=== PATIENT | female | born 1975 | race Caucasian/White ===

== ENCOUNTER 2021-02-04 10:07 | Outpatient (RCR) | payer BC, SELFPAY ==
[2015-06-08 07:30] VITALS: BMI 35.7
== END 2021-02-04 23:59 ==
LOC: EMPH 10:07
PROVIDERS: PCP Internal Medicine; Visit Provider Family Medicine Geriatric Medicine
DX: Z03.818 Encounter for observation for suspected exposure to other biological agents ruled out (principal)
CPT/HCPCS: 87426

== ENCOUNTER → 2023-10-22 | Outpatient (CLI) | payer OTHER, SELFPAY ==
--- OUTSIDE RECORDS SUMMARY | 2023-10-22 16:45 | XMS RPT_ITS | CCD ---
Author Name Unknown Address [address] [place] [address] Organization [facility] Care Team Providers Care Health Promotion Specialist Name Role Phone Lana Davis Unavailable Giulia Michael Unavailable Unavailable PB Oneill Unavailable Unavailable Linnette Clifford Unavailable Unavailable Bindu Coleman Unavailable Unavailable Ticket Writer, System Unavailable Unavailable Unavailable Unavailable Mario Juan Unavailable Unavailable Lana Davis Unavailable Giulia Michael Unavailable Unavailable PB Oneill Unavailable Unavailable Linnette Clifford Unavailable Unavailable Bindu Coleman Unavailable Unavailable Ticket Writer, System Unavailable Unavailable Mario Juan Unavailable Unavailable Unavailable Unavailable Lana Davis Attending Unavailable Lana Davis Referring Unavailable Lana Davis Consulting Unavailable Gravius, Sindhu Unavailable Unavailable Fast, Delma A Unavailable Mario Juan Unavailable Unavailable Manchak Rowan Unavailable Unavailable PB Oneill Unavailable Unavailable Anika Ferrer Unavailable Bindu Coleman Unavailable Unavailable Giulia Michael Unavailable Unavailable Carissa DO Anika Unavailable Lana Davis MD Unavailable Gravius COMMUNITY REINVESTMENT ACT OFFICER, Sindhu Unavailable Unavailable Mario Blue LPN Unavailable Unavailable Manleik FLORES Rowan Unavailable Unavailable Bindu Coleman RN Unavailable Unavailable Giulia Michael RN Unavailable Unavailable Unavailable Unavailable Maria De Jesus Tenorio Unavailable Carissa , Anika Unavailable Lana Davis MD Unavailable [place] OB TECHJuan M Garcia Unavailable Unavailable [place] OB TECH, Cristiana Unavailable Unavailable Medications Completed/Discontinued Medications Medication Drug Class(es) Dates Sig (Normalized) Sig (Original) acyclovir 400 mg oral tablet (20 sources) Herpesvirus Nucleoside Analog DNA Polymerase Inhibitor, Herpes Simplex Virus Nucleoside Analog DNA Polymerase Inhibitor, Herpes Zoster Virus Nucleoside Analog DNA Polymerase Inhibitor Start: 09-06-2016 End: 06-03-2019 take 1 tablet by mouth three times daily Acyclovir 400 MG Oral Tablet 1 (one) Tablet three times daily for 10 days Quantity: 30 {Tablet} Refills: 1 Ordered: 03-Jun-2019 Bindu Coleman RN Start : 06-Sep-2016 End : 03-Jun-2019 Inactive Comments: can repeat if not healed in 10 days Problems Active Problems Problem Classification Problem Date Documented Da te Episodic/Chronic Acute bronchitis (20 sources) Acute bronchitis; Translations: [Bronchitis, acute] 02-14-2016 Episodic Administrative/social admission (20 sources) Patient encounter status; Translations: [Nutritional counseling] 06-17-2021 Episodic Disorders of lipid metabolism (10 sources) Hypercholesterolemi a; Translations: [Hypercholesteremia ] 07-17-2022 Chronic Fever of unknown origin (20 sources) Fever with chills; Translations: [Fever and chills] 11-03-2015 Episodic Genitourinary symptoms and ill-defined conditions (20 sources) Dysuria; Translations: [Dysuria] 04-26-2020 Episodic Immunizations and screening for infectious disease (20 sources) Need for prophylactic vaccination and inoculation against influenza; Translations: [Encounter for immunization] 10-14-2018 Episodic Malaise and fatigue (20 sources) Fatigue; Translations: [Fatigue] Resolved: 06-17-2021 06-07-2018 Episodic Menstrual disorders (20 sources) Irregular periods; Translations: [Irregular menses] 04-23-2019 Chronic Nonmalignant breast conditions (20 sources) Mastitis; Translations: [Mastitis] Resolved: 12-29-2019 11-01-2015 Episodic Nonspecific chest pain (20 sources) Chest pain; Translations: [Chest pain] Resolved: 12-29-2019 09-16-2015 Episodic Past or Other Problems Problem Classification Problem Date Documented Da te Episodic/Chronic Chronic obstructive pulmonary disease and bronchiectasis (15 sources) Chronic obstructive pulmonary disease and bronchiectasis Coronary atherosclerosis and other heart disease (20 sources) Coronary atherosclerosis and other heart disease Unclassified (20 sources) Unspecified Diagnosis 03-19-2013 Unclassified (20 sources) Unclassified (20 sources) OBESITY NOS (278.00) Unclassified (15 sources) SYMPTOM, PAIN, CHEST NOS (786.50) Unclassified (20 sources) CHILLS AND FEVER (780.6) Unclassified (15 sources) Pregnancies (); Translations: [Pregnancies ()] 03-19-2013 Results Test Name Value Interpretation Reference Range Facil ity Vital Signs Date Time Vital Sign Value Performing Clinician Facility 07-17-2022 11:59-0400 Body height 167.64 cm Sindhu Jones [facility]; [facility] Work Phone: 07-17-2022 11:59-0400 Body mass index (BMI) [Ratio] 30.34 kg/m2 Sindhu Jones [facility]; [facility] Work Phone: 07-17-2022 11:59-0400 Body surface area Derived from formula 1.95 m2 Sindhu Jones [facility]; [facility] Work Phone: 07-17-2022 11:59-0400 Body temperature 97.3 [degF] Sindhu Jones [facility]; [facility] Work Phone: Encounters Encounter Date Encounter Type Care Provider Facility Start: 07-03-2023 End: 07-03-2023 Annotation/Addendum Anika Fererr DO Work Phone: [facility] Start: 04-09-2023 End: 04-09-2023 Nursing evaluation of patient and report Anika Ferrer DO Work Phone: [facility] Start: 07-17-2022 End: 07-17-2022 Patient encounter status Anika Ferrer DO Work Phone: [facility]; [facility] Work Phone: Start: 07-17-2022 End: 07-17-2022 Periodic preventive med est patient 40-64yrs Anika Ferrer DO Work Phone: [facility] Start: 06-17-2021 End: 06-17-2021 Patient encounter status Anika Ferrer DO Work Phone: [facility]; [facility] Work Phone: Start: 06-17-2021 End: 06-17-2021 Periodic preventive med est patient 18-39 yrs Anika Ferrer DO Work Phone: [facility] Start: 04-26-2020 End: 04-26-2020 Lab Order Lana Bonericcoi [facility] Start: 03-29-2020 End: 03-29-2020 Annotation/Addendum Lana Bonericcoi [facility] Start: 12-29-2019 End: 12-29-2019 Office outpatient visit 10 minutes Lana Davis [facility] Start: 12-01-2019 End: 12-01-2019 Office outpatient visit 5 minutes Lana Davis [facility] Start: 11-03-2019 End: 11-03-2019 Office outpatient visit 10 minutes Lana Davis [facility] Start: 09-25-2019 End: 09-25-2019 Prescription Refill Lana Davis [facility] Start: 07-11-2019 End: 07-11-2019 Nursing evaluation of patient and report Lana Davis [facility] Start: 06-16-2019 Review Lana aguilar [facility] Start: 06-16-2019 End: 06-16-2019 Office outpatient visit 5 minutes Lana Pozoi [facility] Start: 06-03-2019 End: 06-03-2019 Phone Encounter Lana Bonericcoi [facility] Start: 05-26-2019 End: 05-26-2019 Phone Encounter Lana Bonezzi [facility] Start: 05-07-2019 End: 05-07-2019 Phone Encounter Lana Bonezzi [facility] Start: 04-23-2019 End: 04-23-2019 Lab Order Lana Bonezzi [facility] Start: 12-23-2018 End: 12-23-2018 Phone Encounter Lana Bonezzi [facility] Start: 10-28-2018 Patient encounter procedure Lana Davis [facility] Start: 10-14-2018 End: 10-14-2018 Office outpatient visit 5 minutes Lana Davis [facility] Start: 08-28-2018 End: 08-28-2018 Phone Encounter Lana Bonericcoi [facility] Start: 08-23-2018 End: 08-23-2018 Lab Order Lana Bonericcoi [facility] Start: 06-07-2018 End: 06-07-2018 Lab Order Lana Bonericcoi [facility] Start: 05-28-2018 End: 05-28-2018 Phone Encounter Lana [facility]ericcoi [facility] Start: 10-05-2017 End: 10-05-2017 Phone Encounter Lana Bonericcoi [facility] Start: 02-22-2017 End: 02-22-2017 Phone Encounter Lana Bonericcoi [facility] Start: 09-06-2016 End: 09-06-2016 Patient encounter Lana Bonericcoi [facility] Start: 02-14-2016 End: 02-14-2016 Refill Request Lana Bonezzi [facility] Start: 11-01-2015 End: 11-01-2015 Refill Request Lana Bonericcoi [facility] Start: 03-10-2015 End: 03-10-2015 Phone Encounter Lana Bonezzi [facility] Start: 12-30-2014 End: 12-30-2014 Annotation/Addendum Lana Bonezzi [facility] Start: 11-27-2013 End: 11-27-2013 Phone Encounter Lana Bonericcoi [facility] Start: 04-18-2013 End: 04-18-2013 Phone Encounter Lana Bonericcoi [facility] Start: 03-19-2013 End: 03-19-2013 Patient encounter Lana Bonezzi [facility] Start: 03-05-2013 End: 03-09-2013 Patient encounter Lana Bonezzi [facility] Start: 02-18-2013 End: 02-18-2013 Patient encounter Lana Bonezzi [facility] Start: 02-12-2013 End: 02-12-2013 Phone Encounter Lana Bonezzi [facility] Start: 02-04-2013 End: 02-04-2013 Patient encounter Lana Bonezzi [facility] Start: 01-20-2013 End: 01-22-2013 Patient encounter Lana Bonezzi [facility] Start: 07-26-2012 End: 07-26-2012 Annotation/Addendum Lana Bonezzi [facility] Start: 07-19-2012 End: 07-22-2012 Patient encounter Lana Bonefarzaneh [facility] Start: 04-12-2012 End: 04-12-2012 Patient encounter Lana Bonefarzaneh [facility] Start: 03-29-2012 End: 03-29-2012 Patient encounter Lana Bonefarzaneh [facility] Start: 03-18-2012 End: 03-18-2012 Patient encounter Lana Bonericcoi [facility] Start: 03-01-2012 End: 03-04-2012 Patient encounter Lana Bonericcoi [facility] Start: 02-16-2012 End: 02-16-2012 Patient encounter Lana Bonericcoines [facility] Start: 11-10-2011 End: 11-10-2011 Phone Encounter Lana Bonericcoines [facility] Start: 10-16-2011 End: 10-16-2011 Annotation/Addendum Lana Bonefarzaneh [facility] Start: 10-16-2011 End: 10-16-2011 Patient encounter Lana Bonefarzaneh [facility] Start: 09-11-2011 End: 09-11-2011 Phone Encounter Lana Bonefarzaneh [facility] Start: 09-08-2011 End: 09-08-2011 Annotation/Addendum Lana Bonefarzaneh [facility] Start: 07-17-2011 End: 07-17-2011 Patient encounter Lana Bonericcoi [facility] Start: 05-15-2011 End: 05-15-2011 Patient encounter Lana Bonericcoi [facility] Start: 04-21-2011 End: 04-21-2011 Patient encounter Lana Bonericcoi [facility] Start: 04-06-2011 End: 04-07-2011 Patient encounter Lana Bonericcoi [facility] Start: 03-23-2011 End: 03-27-2011 Patient encounter Lana Bonericcoi [facility] Start: 03-09-2011 End: 03-09-2011 Patient encounter Lana Bonericcoi [facility] Start: 02-22-2011 End: 02-22-2011 Patient encounter Lana Bonericcoi [facility] Start: 10-26-2010 End: 10-26-2010 Patient encounter Lana Bonericcoi [facility] Start: 08-13-2010 End: 08-13-2010 Phone Encounter Lana Bonezzi [facility] Start: 10-09-2008 End: 10-09-2008 Patient encounter Lana Ryan [facility] Start: 05-28-2008 End: 05-28-2008 Phone Encounter Lana Ryan [facility] Start: 09-18-2007 End: 09-18-2007 Office outpatient visit 15 minutes Lana Aguila [facility] Start: 07-12-2007 End: 07-12-2007 Phone Encounter Lana Aguila [facility] Procedures Date Procedure Procedure Detail Performing Clinician Start: 07-01-2023 End: 07-01-2023 Urgent Care Visit Report Procedure Note: See Note; NOTES: [facility] [address], [address] [place] [id number] OFFICE VISIT Date of Service: 07/01/23 MR#: [id number] Acct: [id number] Name: BINDU COLEMAN Rep #: [id number] : 1975 Provider: LUCERO brewster Age/Sex: 48/F Location: [facility] Status: Signed Intake Vital Signs 06/03/22 09:50 07/01/23 11:00 Height 5 ft 6 in 5 ft 6 in Weight: 210 lb BMI 33.9 BP 120/78 Blood Pressure Location Lt brachial Position Sitting Respiration 14 Pulse 97 Pulse Source Monitor Temp 100.4 F H Temp Source Temporal Pulse Oximetry (%) 95 Oxygen Delivery Method room air Intake Visit Reasons: SORE THROAT, FEVER Allergies No Known Allergies Allergy (Verified 06/03/22 09:17) [facility] Medical History (Updated 07/01/23 @ 12:35 by Boris Castillo NP, COMPRESS TRUCKERKunalC) Contact with and (suspected) exposure to other viral communicable diseases Social History Smoking Status: Never smoker HPI HPI Details: BINDU COLEMAN, is a 48 F who presents to the office today for sore throat and fever. 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 This has been ongoing for two days. She first noted fever and chills. She then notes sore throat. She started Augmentin for three pills. She has taken Motrin and Tylenol. She states her sore throat feels like swallowing razor blades . She states strep infection with coworkers. She is tends to receive flu vaccination, but no COVID-19 vaccination. She states three episodes of vomiting with stomach acid . She states reduce fluid intake. ROS Const Constitutional: Positive for body ache, chills, fatigue, fever(s), decreased energy, snoring (chronic), weakness, sleep problems (sleeping more) and change in appetite (less ); No headache(s) Eyes Eyes: No blurry vision, change in vision, double vision, irritation, discharge or vision loss ENT ENT: Positive for ear or mastoid pain, ear discharge, dizziness/vertigo, post nasal drip, facial pain (cheeks, forehead), dental pain, difficulty swallowing and sore throat; No ear pressure, hearing loss, tinnitus, balance problems, nosebleed/epistaxis, nasal congestion, sinus pressure, sinus pain, nasal discharge, headache(s), bad breath, hoarseness, lip swelling, mouth lesions, mouth pain, neck pain, tongue swelling or throat swelling Resp Respiratory: Positive for chest congestion and snoring (chronic); No cough, change in phlegm color, hemoptysis, pain on inspiration, shortness of breath, pain with cough, stridor or wheezing Cardio Cardiology: No chest pain at rest, chest pain with exertion, shortness of breath, dyspnea on exertion or lightheadedness Gastro GI: Positive for abdominal pain, difficulty swallowing, nausea/dyspepsia and vomiting; No change in bowel habits Genitourinary-Female: No difficulty urinating, burning urination, painful urination, urinary incontinence, urinary frequency or urinary urgency Musc Musculoskeletal: No neck pain Neuro Neurology: Positive for weakness; No headache(s) Psych Psychiatric: Positive for change in appetite (less ) Endo Endocrine: Positive for fatigue Aller/Imm Allergy/Immunologic: No lip swelling, throat swelling, tongue swelling or wheezing Exam Const General: cooperative, healthy appearing, comfortable and no acute distress Orientation: alert, awake and oriented x3 HENMT Head: normal to inspection and normocephalic Ears: hearing grossly normal bilaterally, external ears normal and TM's normal bilaterally Nose: external nose normal, nares normal and no nasal discharge Face and sinus: normal facial exam and sinus tenderness ethmoid and maxillary Mouth: oral mucosae normal, lip normal, tongue normal, oropharynx normal and moist mucous membranes Throat: posterior oropharynx normal, uvula midline, abnormal tonsil bilaterally erythema and exudates, posterior oropharynx abnormal cobblestoning and erythema and postnasal drainage Eyes General: appearance normal, both eyes and all related structures Neck Neck: normal visual inspection and no lymphadenopathy Carotids: normal carotid upstroke Lymphatic: lymphadenopathy right anterior cervical Chest Chest palpation inspection: normal inspection of the chest Resp Effort Inspection: normal respiratory effort, able to speak in complete sentences, symmetric chest movement, no cough and no stridor Auscultation: Bilateral: Clear to Auscultation Cardio Rate: regular rate Rhythm: regular rhythm Heart Sounds: S1 normal, S2 normal and no murmurs GI Inspection: normal to inspection Auscultation: normal bowel sounds Palpation: soft Skin General: no rashes or lesions noted Neuro Speech: speech normal Extrem General: normal to inspection and capillary refill normal Results POC Rapid Strep A Office Rapid Strep A Negative Last Edit by Kary Medellin on 07/01/23 11:22 Coding Level of Care Code Off vis,est,level 3 Diagnoses Pharyngitis, unspecified etiology J02.9 Pharyngitis/tonsillitis etiology: unspecified etiology Assessment and Plan Assessment and Plan (1) Pharyngitis: Status: Acute Qualifiers: Pharyngitis/tonsillitis etiology: unspecified etiology Qualified Code(s): J02.9 - Acute pharyngitis, unspecified Plan: Though rapid test is negative. Will treat based on exam. We discussed COVID-19 and Flu testing, but given exam it is felt that throat or sinus etiology is her source of infection, but will consider depending on response. She became dizzy at the end of office visit. We laid her down flat and gave a cold paper towel. Blood pressure, 111/74, and heart rate, 81 bpm, were stable. She improved. She was encouraged in to improve oral hydration. She is not on diuretic therapy. IV fluid was reviewed with her if oral intake continues to be low. Yeast infection given due to history with previous antibiotic usage. Orders: Orders POC Rapid Strep A Today J02.9 - Acute pharyngitis, unspecified, Z20.818 - Contact with and (suspected) exposure to other bacterial communicable diseases Medications: New amoxicillin-pot clavulanate 875-125 mg 1 TAB PO BID 7 days 14 tabs 0RF fluconazole may repeat second dose 72 hrs after first dose if symptoms persist 150 mg PO Q3D 2 tabs 0RF 07/01/23 1236 <Electronically signed by Boris Castillo COMPRESS TRUCKER COMPRESS TRUCKER-C> Date Boris Castillo COMPRESS TRUCKER COMPRESS TRUCKER-C Cosigner Signature: Date (if applicable) CC: DO Anika Guadalupe DO Work Phone: Start: 06-03-2022 End: 06-03-2022 Office Visit Report Procedure Note: See Note; NOTES: [address] [place] [address] OFFICE VISIT Date of Service: 06/03/22 MR#: [id number] Acct: [id number] Patient: BINDU COLEMAN Rep #: [id number] : 1975 Provider: WILDER fall Age/Sex: 47/F Location: [facility] Status: Signed Employer Purchased Covid Test Note: Patient here today for Covid Testing, requested by their Employer. Assessment and Plan Assessment and Plan Orders: Orders POC Cepheid SYLVIA Cov-2 PCR EMP Today Z11.52 - Encounter for screening for COVID-19 06/03/22 1028 <Electronically signed by Andrew HDZ> Date Andrew HDZ Cosignjustice Signature: Date (if applicable) CC: Anika Ferrer DO Work Phone: Start: 06-03-2022 End: 06-03-2022 Urgent Care Visit Report Procedure Note: See Note; NOTES: [facility] [place] [address] OFFICE VISIT Date of Service: 06/03/22 MR#: [id number] Acct: [id number] Name: BINDU COLEMAN Rep #: [id number] : 1975 Provider: WILDER fall Age/Sex: 47/F Location: [facility] Status: Signed with Addenda ADDENDUM by WILDER Moody on 06/03/22 at 1256 HPI Details: add'l dx: COVID-19 Assessment and Plan Assessment and Plan (1) Contact with and (suspected) exposure to other viral communicable diseases: Status: Acute Medications: New dexamethasone (Decadron) 6 mg PO DAILY 5 tabs 0RF 06/03/22 1256 <Electronically signed by Andrew DHZ> Date Andrew Moody cc: * Signed Intake Vital Signs 06/03/22 09:50 Height 5 ft 6 in Weight: 206 lb BMI 33.2 BP 138/82 H Blood Pressure Location Lt brachial Position Sitting Respiration 16 Pulse 102 H Pulse Source Monitor Temp 98.3 F Temp Source Temporal Pulse Oximetry (%) 97 Oxygen Delivery Method room air Intake Visit Reasons: VOMITING, FEVER, BODY ACHES Allergies No Known Allergies Allergy (Verified 06/03/22 09:17) Medications Ranitidine [Zantac] 150 mg PO PRN PRN Heartburn 06/08/15 [History Confirmed 06/03/22] ferrous sulfate 325 mg (65 mg iron) tablet (Iron (ferrous sulfate)) 325 mg PO DAILY 06/08/15 [History Confirmed 06/03/22] vits,calcium no.78-iron fumarate-folic acid 29 mg-1 mg tablet (Prenatabs FA) 1 tab PO DAILY 06/08/15 [History Confirmed 06/03/22] dexamethasone 6 mg tablet (Decadron) 6 mg PO DAILY #5 tabs 06/03/22 [Rx Confirmed 06/03/22] [facility] Medical History (Updated 06/03/22 @ 09:51 by Andrew HDZ, PA) Contact with and (suspected) exposure to other viral communicable diseases Social History Smoking Status: Never smoker HPI HPI Details: BINDU COLEMAN, is a 47 F who presents to the office today for initial evaluation approximately 72- hour history of fever (T-max 102.0 Fahrenheit approximately 48 hours ago), chills, cough, headache, myalgias, fatigue, sore throat, congestion/runny nose. Patient also appreciates trace erythema at right thumb radial IPJ without swelling though tender to palpation unknown ideology. 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 [id number] ibuprofen taken to assist noting she has now been afebrile for the last 48 hours. Non-smoker. No other associated symptoms and no other alleviating/aggravating factors. ROS Const Constitutional: No other (As above) Exam Const General: cooperative, healthy appearing and no acute distress Orientation: alert, awake and oriented x3 HENMT Head: normal to inspection Ears: hearing grossly normal bilaterally, external ears normal, TM's normal bilaterally and EAC's normal Nose: external nose normal, nares normal, septum normal and no nasal discharge Face and sinus: normal facial exam, sinuses nontender and face symmetric Mouth: oral mucosae normal, lip normal, tongue normal and oropharynx normal Throat: posterior oropharynx normal, tonsils normal, uvula midline and postnasal drainage Eyes General: appearance normal, both eyes and all related structures Neck Neck: normal visual inspection, full ROM, no lymphadenopathy, no meningeal signs and supple Neck mass: No Thyroid: thyroid normal Lymphatic: no lymphadenopathy noted Chest Chest palpation inspection: normal inspection of the chest Resp Effort Inspection: normal respiratory effort, able to speak in complete sentences and cough Quality of cough: dry Auscultation: Bilateral: Clear to Auscultation Cardio Palpation: normal PMI Rate: tachycardic Rhythm: regular rhythm Heart Sounds: S1 normal, S2 normal, no gallops, no murmurs and no rubs Pulses: radial pulses present GI Inspection: normal to inspection Palpation: soft and no hepatosplenomegaly Skin General: no rashes or lesions noted Neuro General: patient alert, patient awake, patient oriented x3 and gait normal Cognition: normal cognition Speech: speech normal Gait: normal gait Motor: muscle tone normal throughout Sensory Exam: no sensory deficits noted Psych Appearance: grossly normal Mental Status: mental status grossly normal Mood: congruent mood Affect: normal affect Speech and Movement: speech and movement normal Attitude: cooperative Thought Process: normal Thought Content: normal Judgment: judgment good Results POC Cepheid SYLVIA Cov-2 PCR EMP POC Cepheid SYLVIA Cov-2 PCR EMP Detected Last Edit by Muriel Goldman RN on 06/03/22 10:14 Negative for Influenza A, B, and RSV Coding Level of Care Code Off vis,new,level 3 Diagnoses Contact with and (suspected) exposure to other viral communicable diseases Z20.828 Assessment and Plan Assessment and Plan (1) Contact with and (suspected) exposure to other viral communicable diseases: Status: Acute Plan: - fever/chills, cough, headache, myalgias, fatigue, sore throat, congestion/runny nose POC Cepheid COVID-19 positive, influenza A/B both negative, RSV negative. Copy of lab results offered. Paxlovid declined by patient upon offering. Accepted Decadron prescription upon offering. Patient aware of isolation recommendations and [facility] department notification. Follow-up with PCP in 5 to 7 days should symptoms not improve, ED sooner should symptoms worsen or any other concerns develop. Patient states acknowledging understanding all the above. This note was generated with [employer] dictation software. It may contain incorrect words, spelling, and punctuation that were not noted in checking the note before signing. Medications: New dexamethasone (Decadron) 6 mg PO DAILY 5 tabs 0RF 06/03/22 1028 <Electronically signed by Andrew HDZ> Date Andrew HDZ Cosigner Signature: Date (if applicable) CC: Anika Ferrer DO Work Phone: Start: 02-28-2015 End: 02-28-2015 Chest PA and Lateral Comments: See Note; NOTES: [facility] Imaging Services [address] [place] [address] Radiology Report MR#: [id number] Acct: [id number] Name: BINDU COLEMAN Rep #: [id number] : 1975 F 39 From: Austin Gore MD PCP: Status: REG CLI Study: Chest PA and Lateral Date of Exam: 02/28/15 Exam# [id number] Ordering Dr: Anika Ferrer DO STUDY: X-RAY CHEST REASON FOR EXAM: Female, 39 years old. Shortness of breath, cough. 25 weeks . TECHNIQUE: PA and lateral views at 9:52 AM. COMPARISON: None. FINDINGS: The lungs are well expanded but not hyperinflated. No pneumothorax. There is apparent minimal airspace density/atelectasis in the left midlung. No pleural effusions. Normal size heart. Normal mediastinum and dave. Normal visualized pulmonary arteries. Normal visualized aortic arch and descending thoracic aorta. Normal visualized thoracic spine. Normal visualized ribs, clavicles, and shoulders. There is no demonstrated abnormality of the visualized soft tissue structures of the upper abdomen. IMPRESSION: Minimal pneumonia on the left. N.B. : The above information has been verbally conveyed by Austin Gore MD to Dr. Ferrer, Referring Physician, on 02/28/2015 11:59:37 (ET). Electronically Signed: Austin Gore MD at 10:16 EDT Tel , Service support [phone], N.B. : The above information has been verbally conveyed by Austin Gore MD to Dr. Ferrer, Referring Physician, on 02/28/2015 11:59:37 (ET). RAD/Chest PA and Lateral IMPRESSION: Minimal pneumonia on the left. N.B. : The above information has been verbally conveyed by Austin Gore MD to Dr. Ferrer, Referring Physician, on 02/28/2015 11:59:37 (ET). Electronically Signed: Austin Gore MD at 10:16 EDT Tel , Service support [phone], N.B. : The above information has been verbally conveyed by Austin Gore MD to Dr. Ferrer, Referring Physician, on 02/28/2015 11:59:37 (ET). CC: Anika Ferrer DO Slide Machine Tender: Signed Anika Ferrer Work Phone: Plan of Treatment Date Care Activity Detail Author Start: 07-17-2022 Procedure Education Eprescribed prescriptions (G8553) [facility] Work Phone: Start: 07-17-2022 Provider Instructions for Treatment Reviewed Lab [facility] Work Phone: Start: 06-17-2021 Procedure Education Eprescribed prescriptions (G8553) [facility] Work Phone: Start: 12-29-2019 Procedure Education Eprescribed prescriptions (G8553) [facility] Work Phone: Start: 12-29-2019 Provider Instructions for Treatment Follow up in 2 weeks [facility] Work Phone: Start: 11-03-2019 Provider Instructions for Treatment Follow up in 2 weeks [facility] Work Phone: Start: 05-26-2019 Gonadotropin follicle stimulating hormone FSH AND LH (86924) [facility] Work Phone: Start: 04-23-2019 Gonadotropin chorionic qualitative HCG Qualitative, Serum (96445) [facility] Work Phone: Start: 04-23-2019 TSH Qn TSH (44193) [facility] Work Phone: Start: 08-23-2018 Antibody rubella RUBELLA IgG (84031) [facility] Work Phone: Start: 08-23-2018 Antibody rubeola RUBEOLA IgG (43037) [facility] Work Phone: Start: 08-23-2018 Antibody mumps MUMPS IgG (76944) [facility] Work Phone: Start: 08-23-2018 Antibody varicella-zoster V-ZOSTER IgG (IMMUNITY) 85840 (09263) [facility] Work Phone: Start: 08-23-2018 Hepatitis b surf antibody hbsab HEPATITIS B SURFACE ANTIBODY (76901) [facility] Work Phone: Start: 03-09-2013 Provider Instructions for Treatment Continue Current Prescription(s) [facility] Work Phone: Start: 07-19-2012 Creatine kinase mb fraction only CPK MB FRACTION (11880) [facility] Work Phone: Start: 07-19-2012 Assay of troponin quantitative ASSAY, TROPONIN, QUANTITATIVE (aka Troponin I) (40296) [facility]; [facility] Work Phone: Start: 07-19-2012 Troponin I.cardiac mass conc ASSAY, TROPONIN, QUANTITATIVE (aka Troponin I) (00097) [facility] Work Phone: Start: 07-19-2012 Amylase enzyme act/vol AMYLASE (37490) [facility] Work Phone: Start: 07-19-2012 Assay of amylase AMYLASE (37308) [facility] Work Phone: Start: 07-19-2012 Blood count complete automated CBC (Auto) (45680) [facility] Work Phone: Start: 07-19-2012 Comprehensive metabolic panel Metabolic Panel, Comprehensive (19302) [facility] Work Phone: Start: 07-19-2012 Assay of lipase LIPASE (83563) [facility] Work Phone: Start: 07-19-2012 Fibrin dgradj products d-dimer quantitative D-Dimer (80802) [facility] Work Phone: Start: 03-29-2012 Provider Instructions for Treatment [facility] Work Phone: Start: 03-18-2012 Provider Instructions for Treatment Follow up in 2 weeks [facility] Work Phone: Start: 03-04-2012 Provider Instructions for Treatment [facility] Work Phone: Start: 04-21-2011 Provider Instructions for Treatment [facility] Work Phone: Start: 04-07-2011 Provider Instructions for Treatment Continue Current Prescription(s) [facility] Work Phone: Start: 03-09-2011 Provider Instructions for Treatment [facility] Work Phone: Start: 02-22-2011 Provider Instructions for Treatment FOLLOW UP IN 2 WEEKS [facility] Work Phone: Start: 09-18-2007 Cul bact xcpt urine blood/stool aerobic isol BORA CULTURE-OTHER (33504) [facility] Work Phone: Start: 09-18-2007 Patient Education Sore throat: diagnosis and treatment [facility] Work Phone: [facility] Work Phone: [facility] Work Phone: [facility] Work Phone: [facility] Work Phone: [facility] Work Phone: [facility] Work Phone: [facility] Work Phone: Pharyngitis, acu te : Sore throat: diagnosis and treatment [facility] Work Phone: [facility] Work Phone: [facility] Work Phone: [facility] Work Phone: [facility] Work Phone: Immunizations Immunization Date Immunization Notes Care Provider Dick kuhn 07-08-2022 influenza, seasonal, injectable Anika Ferrer DO Work Phone: [facility]; [facility] Work Phone: 12-19-2018 measles, mumps and rubella virus vaccine Lana Pozoi [facility] Work Phone: Payers Date Payer Category Payer Unknown [id number] 1975 Unknown [id number] [facility] Unknown [id number] Social History Date Type Detail Facility Alcohol Use: Never smoker [facility] Work Phone: Caffeine Use [facility] Work Phone: Instructions Note Date & Type Note Facility [facility] Work Phone: Instructions Note Date & Type Note Facility [facility] Work Phone: Instructions Note Date & Type Note Facility [facility]; [facility] Work Phone: Instructions Note Date & Type Note Facility [facility]; [facility] Work Phone: Family History Unknown Family Member Name Dates Details Diabetes Mellitus Comments:Maternal Uncle. Mat ernal Grandfather. Status:Active Heart Disease Comments:Maternal Uncle. Pat ernal Grandfather. Maternal Grandfather. Status:Active Hypercholesterolemia Comments:Mother. Brother. Ma ternal Grandmother. Status:Active Hypertension Comments:Mother. Father. Bro ther. Maternal Grandmother. Maternal Grandfather. Status:Active Prostate Cancer Comments:Father. Status:Active Unknown Family Member Name Dates Details Diabetes Mellitus Comments:Maternal Uncle. Mat ernal Grandfather. Status:Active Heart Disease Comments:Maternal Uncle. Pat ernal Grandfather. Maternal Grandfather. Status:Active Hypercholesterolemia Comments:Mother. Brother. Ma ternal Grandmother. Status:Active Hypertension Comments:Mother. Father. Bro ther. Maternal Grandmother. Maternal Grandfather. Status:Active Prostate Cancer Comments:Father. Status:Active Unknown Family Member Name Dates Details Diabetes Mellitus Comments:Maternal Uncle. Mat ernal Grandfather. Status:Active Heart Disease Comments:Maternal Uncle. Pat ernal Grandfather. Maternal Grandfather. Status:Active Hypercholesterolemia Comments:Mother. Brother. Ma ternal Grandmother. Status:Active Hypertension Comments:Mother. Father. Bro ther. Maternal Grandmother. Maternal Grandfather. Status:Active Prostate Cancer Comments:Father. Status:Active Unknown Family Member Name Dates Details Diabetes Mellitus Comments:Maternal Uncle. Mat ernal Grandfather. Status:Active Heart Disease Comments:Maternal Uncle. Pat ernal Grandfather. Maternal Grandfather. Status:Active Hypercholesterolemia Comments:Mother. Brother. Ma ternal Grandmother. Status:Active Hypertension Comments:Mother. Father. Bro ther. Maternal Grandmother. Maternal Grandfather. Status:Active Prostate Cancer Comments:Father. Status:Active Unknown Family Member Name Dates Details Diabetes Mellitus Comments:Maternal Uncle. Mat ernal Grandfather. Status:Active Heart Disease Comments:Maternal Uncle. Pat ernal Grandfather. Maternal Grandfather. Status:Active Hypercholesterolemia Comments:Mother. Brother. Ma ternal Grandmother. Status:Active Hypertension Comments:Mother. Father. Bro ther. Maternal Grandmother. Maternal Grandfather. Status:Active Prostate Cancer Comments:Father. Status:Active Unknown Family Member Name Dates Details Diabetes Mellitus Comments:Maternal Uncle. Mat ernal Grandfather. Status:Active Heart Disease Comments:Maternal Uncle. Pat ernal Grandfather. Maternal Grandfather. Status:Active Hypercholesterolemia Comments:Mother. Brother. Ma ternal Grandmother. Status:Active Hypertension Comments:Mother. Father. Bro ther. Maternal Grandmother. Maternal Grandfather. Status:Active Prostate Cancer Comments:Father. Status:Active Unknown Family Member Name Dates Details Diabetes Mellitus Comments:Maternal Uncle. Mat ernal Grandfather. Status:Active Heart Disease Comments:Maternal Uncle. Pat ernal Grandfather. Maternal Grandfather. Status:Active Hypercholesterolemia Comments:Mother. Brother. Ma ternal Grandmother. Status:Active Hypertension Comments:Mother. Father. Bro ther. Maternal Grandmother. Maternal Grandfather. Status:Active Prostate Cancer Comments:Father. Status:Active Unknown Family Member Name Dates Details Diabetes Mellitus Comments:Maternal Uncle. Mat ernal Grandfather. Status:Active Heart Disease Comments:Maternal Uncle. Pat ernal Grandfather. Maternal Grandfather. Status:Active Hypercholesterolemia Comments:Mother. Brother. Ma ternal Grandmother. Status:Active Hypertension Comments:Mother. Father. Bro ther. Maternal Grandmother. Maternal Grandfather. Status:Active Prostate Cancer Comments:Father. Status:Active Unknown Family Member Name Dates Details Diabetes Mellitus Comments:Maternal Uncle. Mat ernal Grandfather. Status:Active Heart Disease Comments:Maternal Uncle. Pat ernal Grandfather. Maternal Grandfather. Status:Active Hypercholesterolemia Comments:Mother. Brother. Ma ternal Grandmother. Status:Active Hypertension Comments:Mother. Father. Bro ther. Maternal Grandmother. Maternal Grandfather. Status:Active Prostate Cancer Comments:Father. Status:Active Unknown Family Member Name Dates Details Diabetes Mellitus Comments:Maternal Uncle. Mat ernal Grandfather. Status:Active Heart Disease Comments:Maternal Uncle. Pat ernal Grandfather. Maternal Grandfather. Status:Active Hypercholesterolemia Comments:Mother. Brother. Ma ternal Grandmother. Status:Active Hypertension Comments:Mother. Father. Bro ther. Maternal Grandmother. Maternal Grandfather. Status:Active Prostate Cancer Comments:Father. Status:Active Unknown Family Member Name Dates Details Diabetes Mellitus Comments:Maternal Uncle. Mat ernal Grandfather. Status:Active Heart Disease Comments:Maternal Uncle. Pat ernal Grandfather. Maternal Grandfather. Status:Active Hypercholesterolemia Comments:Mother. Brother. Ma ternal Grandmother. Status:Active Hypertension Comments:Mother. Father. Bro ther. Maternal Grandmother. Maternal Grandfather. Status:Active Prostate Cancer Comments:Father. Status:Active Unknown Family Member Name Dates Details Diabetes Mellitus Comments:Maternal Uncle. Mat ernal Grandfather. Status:Active Heart Disease Comments:Maternal Uncle. Pat ernal Grandfather. Maternal Grandfather. Status:Active Hypercholesterolemia Comments:Mother. Brother. Ma ternal Grandmother. Status:Active Hypertension Comments:Mother. Father. Bro ther. Maternal Grandmother. Maternal Grandfather. Status:Active Prostate Cancer Comments:Father. Status:Active Unknown Family Member Name Dates Details Diabetes Mellitus Comments:Maternal Uncle. Mat ernal Grandfather. Status:Active Heart Disease Comments:Maternal Uncle. Pat ernal Grandfather. Maternal Grandfather. Status:Active Hypercholesterolemia Comments:Mother. Brother. Ma ternal Grandmother. Status:Active Hypertension Comments:Mother. Father. Bro ther. Maternal Grandmother. Maternal Grandfather. Status:Active Prostate Cancer Comments:Father. Status:Active Unknown Family Member Name Dates Details Diabetes Mellitus Comments:Maternal Uncle. Mat ernal Grandfather. Status:Active Heart Disease Comments:Maternal Uncle. Pat ernal Grandfather. Maternal Grandfather. Status:Active Hypercholesterolemia Comments:Mother. Brother. Ma ternal Grandmother. Status:Active Hypertension Comments:Mother. Father. Bro ther. Maternal Grandmother. Maternal Grandfather. Status:Active Prostate Cancer Comments:Father. Status:Active Unknown Family Member Name Dates Details Diabetes Mellitus Comments:Maternal Uncle. Mat ernal Grandfather. Status:Active Heart Disease Comments:Maternal Uncle. Pat ernal Grandfather. Maternal Grandfather. Status:Active Hypercholesterolemia Comments:Mother. Brother. Ma ternal Grandmother. Status:Active Hypertension Comments:Mother. Father. Bro ther. Maternal Grandmother. Maternal Grandfather. Status:Active Prostate Cancer Comments:Father. Status:Active Unknown Family Member Name Dates Details Diabetes Mellitus Comments:Maternal Uncle. Mat ernal Grandfather. Status:Active Heart Disease Comments:Maternal Uncle. Pat ernal Grandfather. Maternal Grandfather. Status:Active Hypercholesterolemia Comments:Mother. Brother. Ma ternal Grandmother. Status:Active Hypertension Comments:Mother. Father. Bro ther. Maternal Grandmother. Maternal Grandfather. Status:Active Prostate Cancer Comments:Father. Status:Active Unknown Family Member Name Dates Details Diabetes Mellitus Comments:Maternal Uncle. Mat ernal Grandfather. Status:Active Heart Disease Comments:Maternal Uncle. Pat ernal Grandfather. Maternal Grandfather. Status:Active Hypercholesterolemia Comments:Mother. Brother. Ma ternal Grandmother. Status:Active Hypertension Comments:Mother. Father. Bro ther. Maternal Grandmother. Maternal Grandfather. Status:Active Prostate Cancer Comments:Father. Status:Active Unknown Family Member Name Dates Details Diabetes Mellitus Comments:Maternal Uncle. Mat ernal Grandfather. Status:Active Heart Disease Comments:Maternal Uncle. Pat ernal Grandfather. Maternal Grandfather. Status:Active Hypercholesterolemia Comments:Mother. Brother. Ma ternal Grandmother. Status:Active Hypertension Comments:Mother. Father. Bro ther. Maternal Grandmother. Maternal Grandfather. Status:Active Prostate Cancer Comments:Father. Status:Active Unknown Family Member Name Dates Details Diabetes Mellitus Comments:Maternal Uncle. Mat ernal Grandfather. Status:Active Heart Disease Comments:Maternal Uncle. Pat ernal Grandfather. Maternal Grandfather. Status:Active Hypercholesterolemia Comments:Mother. Brother. Ma ternal Grandmother. Status:Active Hypertension Comments:Mother. Father. Bro ther. Maternal Grandmother. Maternal Grandfather. Status:Active Prostate Cancer Comments:Father. Status:Active Instructions Name Dates Details Obesity : obesity counseling Indication:Obesity Name Dates Details Obesity : obesity counseling Indication:Obesity Name Dates Details Obesity : obesity counseling Indication:Obesity Name Dates Details Obesity : obesity counseling Indication:Obesity Name Dates Details Obesity : obesity counseling Indication:Obesity Name Dates Details Obesity : obesity counseling Indication:Obesity Name Dates Details obesity counseling Indication:Obesity Start:18-Feb-2013 Instruction Type:Provider In structions for Treatment Name Dates Details obesity counseling Indication:Obesity Start:18-Feb-2013 Instruction Type:Provider In structions for Treatment Name Dates Details obesity counseling Indication:Obesity Start:18-Feb-2013 Instruction Type:Provider In structions for Treatment Name Dates Details How to access health informa tion online Indication:Weight gain Start:29-Dec-2019 Instruction Type:Patient Education How to access health informa tion online - Detail Indication:Weight gain Start:29-Dec-2019 Instruction Type:Patient Education Patient Instructions Indication:Weight gain Start:29-Dec-2019 Instruction Type:Provider Instructions for Treatment obesity counseling Indication:Obesity Start:18-Feb-2013 Instruction Type:Provider Instructions for Treatment Name Dates Details obesity counseling Indication:Obesity Start:18-Feb-2013 Instruction Type:Provider In structions for Treatment Name Dates Details obesity counseling Indication:Obesity Start:18-Feb-2013 Instruction Type:Provider In structions for Treatment Name Dates Details obesity counseling Indication:Obesity Start:18-Feb-2013 Instruction Type:Provider In structions for Treatment Name Dates Details obesity counseling Indication:Obesity Start:18-Feb-2013 Instruction Type:Provider In structions for Treatment Name Dates Details obesity counseling Indication:Obesity Start:18-Feb-2013 Instruction Type:Provider In structions for Treatment Summary Purpose Advance Directives Name Dates Details Immunization Registry [place] - Effective on 12/23/2018. Expiration date unspecified Effective:23-Dec-2018 Name Dates Details Immunization Registry [place] - Effective on 12/23/2018. Expiration date unspecified Effective:23-Dec-2018 Name Dates Details Immunization Registry [place] - Effective on 12/23/2018. Expiration date unspecified Effective:23-Dec-2018 Name Dates Details Immunization Registry [place] - Effective on 12/23/2018. Expiration date unspecified Effective:23-Dec-2018 Name Dates Details Immunization Registry [place] - Effective on 12/23/2018. Expiration date unspecified Effective:23-Dec-2018 Name Dates Details Immunization Registry [place] - Effective on 12/23/2018. Expiration date unspecified Effective:23-Dec-2018 Name Dates Details Immunization Registry [place] - Effective on 12/23/2018. Expiration date unspecified Effective:23-Dec-2018 Name Dates Details Immunization Registry [place] - Effective on 12/23/2018. Expiration date unspecified Effective:23-Dec-2018 Name Dates Details Immunization Registry [place] - Effective on 12/23/2018. Expiration date unspecified Effective:23-Dec-2018 Name Dates Details Immunization Registry [place] - Effective on 12/23/2018. Expiration date unspecified Effective:23-Dec-2018 Name Dates Details Immunization Registry [place] - Effective on 12/23/2018. Expiration date unspecified Effective:23-Dec-2018 Name Dates Details Immunization Registry [place] - Effective on 12/23/2018. Expiration date unspecified Effective:23-Dec-2018 Name Dates Details Immunization Registry [place] - Effective on 12/23/2018. Expiration date unspecified Effective:23-Dec-2018 Name Dates Details Immunization Registry [place] - Effective on 12/23/2018. Expiration date unspecified Effective:23-Dec-2018 Additional Source Comments INFORMATION SOURCE (unrecogn ized section and content) FOR RECORDS PERTAINING TO PATIENTS WHO ARE OR HAVE BEEN ENROLLED IN A CHEMICAL DEPENDENCY/SUBSTANCEABUSE PROGRAM, SOME INFORMATION MAY BE OMITTED. This clinical summary was aggregated from multiple sources. Caution should be exercised in using it in the provision of clinical care. This summary normalizes information from multiple sources, and as a consequence, information in this document may materially change the coding, format and clinical context of patient data. In addition, data may be omitted in some cases. CLINICAL DECISIONS SHOULD BE BASED ON THE PRIMARY CLINICAL RECORDS. [facility]. provides no warranty or guarantee of the accuracy or completeness of information in this document.
[2023-10-25 18:07] LABS: HPV APTIMA, High Risk Negative (Negative)
== END | disposition home or self-care (01) ==
LOC: LABSPEC 16:21
PROVIDERS: PCP Internal Medicine; Referring Provider Nurse Practitioner Women's Health; Visit Provider Nurse Practitioner Women's Health
DX: Z12.4 Encounter for screening for malignant neoplasm of cervix (principal)
CPT/HCPCS: 87624; 88175; G0145

== ENCOUNTER → 2023-10-29 | Outpatient (CLI) | payer OTHER, SELFPAY ==
--- NOTE | 2023-10-29 13:28 | BI_ITS ---
MAMMOGRAPHY - BILATERAL SCREENING REASON FOR EXAM: Female, 48 years old. Routine annual screening examination. PERTINENT HISTORY: Non-contributory. TECHNIQUE: Digital bilateral breast donny (3D mammographic acquisition) in the CC and MLO projections. 2-D mediolateral oblique (MLO) and craniocaudad (CC) views of both breasts were obtained. CAD: Full Field Digital Mammography with Computer Added Detection was performed. COMPARISON: None. Baseline examination. FINDINGS: Breast Composition: The breasts are heterogeneously dense, which may obscure small masses. There are no dominant masses or suspicious calcifications. Asymmetry of breast tissue where more breast tissue is seen in the right breast as compared to the left side. No other significant abnormalities are identified. There has been no significant change since the prior study. BI/SCRN MAMM (CAD)W/DONNY BILAT IMPRESSION: Stable bilateral screening mammogram. Yearly follow-up mammogram recommended. (A) ASSESSMENT CATEGORY: BIRADS Category 2: Benign. A letter regarding these results will be sent to the patient by the facility within 30 days. Approximately 10% of breast cancers are not detected by mammography. A normal mammogram should not delay biopsy of a clinically suspicious abnormality. [id number] Electronically Signed: Ramos Kurtz MD at 15:16 EST ,
== END | disposition home or self-care (01) ==
LOC: OPBI 13:28
PROVIDERS: PCP Internal Medicine; Referring Provider Nurse Practitioner Women's Health; Visit Provider Nurse Practitioner Women's Health
DX: Z12.31 Encounter for screening mammogram for malignant neoplasm of breast (principal)
CPT/HCPCS: 77063; 77067

== ENCOUNTER → 2024-09-01 | Outpatient (CLI) | payer OTHER, SELFPAY ==
--- NOTE | 2024-09-01 07:26 | RAD_ITS ---
EXAM: XR CHEST, 2 VIEWS CLINICAL INDICATION: COUGH TECHNIQUE: Frontal and lateral views of the chest. COMPARISON: Two-view chest 02/28/2015 FINDINGS: LUNGS AND PLEURAL SPACES: Unremarkable. No consolidation or edema. No pneumothorax. No effusion. HEART: Unremarkable. Cardiac silhouette not enlarged. MEDIASTINUM: Central airways and mediastinal contour are unremarkable. BONES/JOINTS: Unremarkable. No acute fracture. SOFT TISSUES: Unremarkable. RAD/Chest PA and Lateral IMPRESSION: No radiographic evidence of acute cardiopulmonary disease. Electronically Signed: Angelo Pritchard MD at 7:52 EST ,
== END | disposition home or self-care (01) ==
LOC: RAD 07:23
PROVIDERS: PCP Internal Medicine; Referring Provider Internal Medicine; Visit Provider Internal Medicine
DX: R05.9 Cough, unspecified (principal)
CPT/HCPCS: 71046

== ENCOUNTER → 2024-10-27 | Outpatient (CLI) | payer OTHER, SELFPAY ==
[2024-10-27 13:23] LABS: T4 Free Direct 1.69 ng/dL (0.76-1.46)
[2024-10-27 13:50] LABS: Vitamin D,25 Hydroxy 49.8 ng/mL
[2024-10-28 04:06] LABS: Thyroid Peroxidase AB < 9 IU/mL (0-34)
== END | disposition home or self-care (01) ==
LOC: BWCLAB 09:38
PROVIDERS: PCP Internal Medicine; Referring Provider Nurse Practitioner Women's Health; Visit Provider Nurse Practitioner Women's Health
DX: Z13.29 Encounter for screening for other suspected endocrine disorder (principal); R53.83 Other fatigue; R23.2 Flushing; N92.6 Irregular menstruation, unspecified; Z13.21 Encounter for screening for nutritional disorder
CPT/HCPCS: 36415; 82306; 84439; 84443; 86376

== ENCOUNTER → 2024-10-31 | Outpatient (CLI) | payer OTHER, SELFPAY ==
--- NOTE | 2024-10-31 07:47 | US_ITS ---
INDICATION: pelvic pressure EXAMINATION: Ultrasound US Pelvis Non OB Limited With Transvaginal Imaging TECHNIQUE: Transabdominal and transvaginal (for optimal evaluation of the adnexa) pelvic ultrasound was performed. Grayscale, spectral waveform, and color flow Doppler evaluation of the adnexa. COMPARISON: None. FINDINGS: UTERUS: Anteverted. The uterus measures 10.7 cm in length.. There is no uterine mass. The endometrial stripe measures 1.2 cm in AP diameter which is within normal limits. RIGHT OVARY: Measures 2.3 x 2.2 x 1.4 cm. Non-enlarged, normal echogenicity. There is normal arterial inflow and venous outflow present in the right ovary. LEFT OVARY: Measures 3 x 2.2 x 1.7 cm. Non-enlarged, normal echogenicity. There is normal arterial inflow and venous outflow present in the left ovary. FREE FLUID: None. US/Pelvic w/ Transvaginal IMPRESSION: Normal pelvic ultrasound. Electronically Signed: Robert Hurtado MD at 0:47 EST ,
--- NOTE | 2024-10-31 07:47 | BI_ITS ---
MAMMOGRAPHY - BILATERAL SCREENING REASON FOR EXAM: Female, 49 years old. Routine annual screening examination. PERTINENT HISTORY: Non-contributory. TECHNIQUE: Digital bilateral breast donny (3D mammographic acquisition) in the CC and MLO projections. 2-D mediolateral oblique (MLO) and craniocaudad (CC) views of both breasts were obtained. CAD: Full Field Digital Mammography with Computer Added Detection was performed. COMPARISON: Comparison is made with prior study dated October 29, 2023. FINDINGS: Breast Composition: The breasts are heterogeneously dense, which may obscure small masses. There are no dominant masses or suspicious calcifications. Stable asymmetry of breast tissue more more breast tissue is seen in the right breast as compared to the left side. No other significant abnormalities are identified. There has been no significant change since the prior study. BI/SCRN MAMM (CAD)W/DONNY BILAT IMPRESSION: Stable bilateral screening mammogram. Yearly follow-up mammogram recommended. (A) ASSESSMENT CATEGORY: BIRADS Category 2: Benign. A letter regarding these results will be sent to the patient by the facility within 30 days. Approximately 10% of breast cancers are not detected by mammography. A normal mammogram should not delay biopsy of a clinically suspicious abnormality. [id number] Electronically Signed: Ramos Kurtz MD at 9:38 EST ,
== END | disposition home or self-care (01) ==
LOC: US 07:45
PROVIDERS: PCP Internal Medicine; Referring Provider Internal Medicine; Visit Provider Nurse Practitioner Women's Health
DX: Z12.31 Encounter for screening mammogram for malignant neoplasm of breast (principal); R10.2 Pelvic and perineal pain; N81.2 Incomplete uterovaginal prolapse
CPT/HCPCS: 76830; 76856; 77063; 77067